=== PATIENT | male | born 1995 | race Two or more races ===

== ENCOUNTER 2024-11-05 14:57 | Outpatient (RCR) | payer MEDICAID, SELFPAY ==
[2024-11-04 12:17] LABS: Basophils % (Auto) 0 % (0-2.5); Eosinophils # (Auto) 0.1 Thou/mm3 (0.0-0.5); Eosinophils % (Auto) 2 % (0-10); Hemoglobin 14.4 g/dL (13.5-16.0); Immature Granulocytes % (Auto) 0 % (0-0); Immature Granulocytes Auto 0.01 Thou/mm3 (0.00-0.00); Lymphocytes # (Auto) 1.8 Thou/mm3 (1.0-4.8); Lymphocytes % (Auto) 26 % (10-50); Mean Corpuscular HGB Conc 34.3 g/dl (31.0-37.0); Mean Corpuscular Hemoglobin 31.6 pg (25.0-35.0); Mean Corpuscular Volume 92 fL (80-100); Monocytes # (Auto) 0.7 Thou/mm3 (0.0-0.8); Monocytes % (Auto) 10 % (0-12); Neutrophils # (Auto) 4.4 Thou/mm3 (1.8-7.7); Neutrophils % (Auto) 62 % (37-80); Nucleated Red Blood Cell % 0 /100 WBC (0); Platelet Count 227 Thou/mm3 (140-440); Red Blood Count 4.55 Miln/mm3 (4.50-5.90); White Blood Count 7.1 Thou/mm3 (3.8-10.6)
[2024-11-04 12:51] LABS: Alanine Aminotransferase 42 U/L (10-49); Anion Gap 8 (7-16); Aspartate Amino Transferase 127 U/L (0-34); BUN/Creatinine Ratio 19 Ratio (12-20); Bilirubin,Total 0.5 mg/dL (0.3-1.2); Blood Urea Nitrogen 15 mg/dL (9-23); Calcium 9.6 mg/dL (8.3-10.6); Calcium (Corrected) 9.6 mg/dL (8.5-10.1); Carbon Dioxide 29.2 mMol/L (20.0-31.0); Chloride 103 mMol/L (98-107); Creatinine (Component) 0.8 mg/dL (0.6-1.3); Globulin 2.4 gm/dL (2.3-3.5); Glucose 84 mg/dL (74-106); LDH (Lactate Dehydrogenase) 325 U/L (120-246); Osmolality,Calculated 279 (275-295); Potassium 4.2 mMol/L (3.4-5.1); Sodium 140 mMol/L (136-145); Total Protein 7.4 gm/dL (5.7-8.2); eGFR > 60 See Note
[2024-11-04 12:52] LABS: Albumin/Globulin Ratio 2.1 (1.2-2.2); Alkaline Phosphatase 77 U/L (46-116)
--- NOTE | 2024-11-08 22:52 | CTCFLWUP_ITS ---
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 Smokes marijuana at least three times a day since 2014. S/p 6 cycles of dose escalated BEACOPP (11/01/2020?05/24/2021) S/p Pembrolizumab (04/17/2022?11/27/2023) DATE OF DIAGNOSIS: 04/21/2015 STAGE/TNM: Nodular sclerosing classic Hodgkin lymphoma TREATMENT HISTORY: Care?Plan Start?Date Cycle Day Intent BEACOPP?escalated?dose?with?neulasta 11/21/2020 1 21 Curative?(primary) VENOfer?200mg?IV?wkly 12/08/2020 1 70 Palliative KEYTRUDA?400?q?6?wks 04/17/2022 1 42 Palliative HISTORY OF PRESENT ILLNESS: Chris Kapadia is a 29-year-old ENG speaking male with following oncology history. 04/21/2015: Mr. Kapadia had excision biopsy of the left neck mass? 10/05/2015?02/22/2016: Mr. Kapadia was treated with 3 cycles of ABVD. 11/03/2019: CT scan of the abdomen and pelvis with IV contrast?hepatomegaly measuring 20 cm, splenomegaly measuring 14 cm. Large mass replacing much of the spleen, at least 8.3 x 7.9 cm in dimension, multiple small or splenic lesions was noted. Large necrotic sal hepatis pericaval periaortic lymph nodes surrounding the aorta and inferior cava were also noted. Adenopathy extends to the common iliac region, external iliac lymph nodes. 11/03/2019: CT scan of the chest with contrast showed a 14 mm noncalcified pulmonary nodule in the left upper lobe with indistinct margins. No mediastinal adenopathy was noted. 11/20/2019: PET CT scan? 03/15/2020: Bone marrow biopsy and aspiration? 08/30/2020: PET CT scan? 09/21/2020: Echocardiogram? 10/10/2020: CT scan of the neck, chest, abdomen and pelvis with IV contrast? 11/02/2020: Pulmonary function test? 11/03/2020: patient had excision of soft facial mass from the left neck. 11/15/2020: Patient went to the ER because of abdominal pain as well as left leg swelling. He had a left lower extremity venous Doppler ultrasound? 11/01/2020? 05/24/2021: Patient received 6 cycles dose escalated BEACOPP with Neulasta. 06/30/2021: PET CT scan? 11/13/2021: [facility] consultation? 12/23/2021: PET/CT scan? 01/17/2022: Bone marrow biopsy and aspiration? 02/21/2022: [facility] decided not to pursue bone marrow transplantation 04/14/2022: PET/CT scan? 04/17/2022: Mr. Kapadia is started on pembrolizumab. 05/23/2023: PET/CT scan? 11/27/2023: Mr. Kapadia had last dose of pembrolizumab. 11/28/2023: PET/CT scan? 01/15/2024 - 02/03/2024: Mr. Kapadia had autologous bone marrow transplantation at [facility]. 02/26/2024: Notes from [facility] 06/23/2024: PET/CT scan? OTHER MEDICAL HISTORY/CONDITIONS: FAMILY HISTORY: ?Clone Family Hx? SOCIAL HISTORY: MEDICATIONS: 1. acyclovir - 400 mg 1 tab Twice a Day 2. Bactrim DS - 800-160 mg 1 tab As directed 3. Biotene Dry Mouth Oral Rinse - 15 mL Four times a day 4. Hydrocortisone (Topical) - 1 % 2 Application As directed 5. magnesium hydroxide - 400 mg/5 mL 30 mL Daily 6. senna - 8.6 mg 1 tab Daily?Palabra Meds? Medications Last Reconciled by Sepideh Blanchard MA on 11/05/2024 ALLERGIES: No Known Drug Allergies REVIEW OF SYSTEMS: A complete 14-point review of systems was performed and is negative except as noted in interval history. PHYSICAL EXAMINATION: VITAL SIGNS: Temperature?99.4, B/P?109/78, Oxygen?Saturation?96% Weight?133?lbs (Change?since?11/04/24:?-5.8?lbs) PAIN: 4 - Moderate pain ECOG Performance Status: 0 - Asymptomatic and fully active GENERAL APPEARANCE: Appears well, in no apparent distress, appropriately interactive. HEENT: Normocephalic, no temporal wasting, normal conjunctiva, no scleral icterus, normal hearing, lips without lesions, neck normal range of motion. CARDIOVASCULAR: Not assessed. PULMONARY: Normal respiratory effort, no respiratory distress or use of accessory muscles, speaking in full sentences, no tachypnea. EXTREMITIES: No pedal edema or cyanosis. SKIN: Normal skin appearance. NEUROLOGIC: Alert and oriented x4. PSHYCHIATRIC: Appropriate affect, mood normal, behavior normal, intact thought and speech. LABORATORY DATA: I have personally reviewed and interpreted each of the patient?s relevant lab tests, abnormal findings are below: Date 11/04/24 ??WHITE?BLOOD?COUNT?(Thou/mm3) 7.1 ??RED?BLOOD?COUNT?(Miln/mm3) 4.55 ??HEMOGLOBIN?(gm/dl) 14.4 ??HEMATOCRIT?(%) 42.0 ??PLATELET?COUNT?(Thou/mm3) 227 ??NEUTROPHILS?%,?AUTO?(%) 62 ??LYMPH?%,?AUTO?(%) 26 ??NEUTROPHILS,?AUTO?(Thou/mm3) 4.4 ASSESSMENT/PLAN: 1. Repeat PET CT scan done on 06/23/2024 showed interval hypermetabolic 7 mm and 3 mm left axillary lymph nodes as documented above.. 2. s/p autologous bone marrow transplantation at [facility] (01/15/2024 - 02/03/2024). 3. PET scan done 11/28/2023 showed no interval recurrent tumor. 4. Mr. Kapadia received last dose of pembrolizumab on 11/27/2023. 5. PET CT scan done on 05/23/2023 showed significant improvement as documented above. 6. Pembrolizumab was started on 04/17/2022. 7. Bone marrow transplantation was canceled by [facility] due to the reasons documented above. 8. Mr. Kapadia denies any complaints today. 9. PET/CT scan done on 12/23/2021 showed progression of the disease as described above. 10. Mr. Kapadia completed 6 cycles of dose escalated BEACOPP on 05/24/2021. 11. Most likely stage IVb Hodgkin's lymphoma. 12. Patient was treated with 3 cycles of ABVD chemotherapy in 2016 as described above. Patient have PET CT scan scheduled. Will follow-up on the PET scan CBC CMP LDH uric acid RETURN TO CLINIC: Telephone appointment after the PET scan to discuss results BILLING AND COMPLIANCE: I reviewed external records from providers outside my specialty as summarized above. I spent a total of 50 minutes on this patient?s care on the day of their visit excluding time spent related to any billed procedures. This time includes time spent with the patient as well as time spent documenting in the medical record, reviewing patients records and tests, obtaining history, placing orders, communicating with other healthcare professionals, counseling the patient, family or caregiver, and/or care coordination for the diagnoses above. Electronically Signed by: Evans Dinero MD T: 10:50 PM CC: Roe?Imelda? PCP: No Primary/family, Physician Referring: Roe Segura This document was completed utilizing speech recognition software. Grammatical errors, random word insertions, pronoun errors, and incomplete sentences are an occasional consequence of this system due to software limitations, ambient noise, and hardware issues. Any formal questions or concerns about the content, text or information contained within the body of this dictation should be directly addressed to the provider for clarification.
--- NOTE | 2024-11-29 23:55 | CTCFLWUP_ITS ---
Patient: CHRIS KAPADIA : 1995 Page 15 of 15 FOLLOW UP NOTE DATE OF SERVICE: 11/26/2024 NAME: CHRIS KAPADIA ACCOUNT: [id number] : 1995 AGE: 29 INTERVAL HISTORY: Telephone appointment to discuss PET scan. 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 Smokes marijuana at least three times a day since 2014. S/p 6 cycles of dose escalated BEACOPP (11/01/2020?05/24/2021) S/p Pembrolizumab (04/17/2022?11/27/2023) DATE OF DIAGNOSIS: 04/21/2015 STAGE/TNM: Nodular sclerosing classic Hodgkin lymphoma TREATMENT HISTORY: Care?Plan Start?Date Cycle Day Intent BEACOPP?escalated?dose?with?neulasta 11/21/2020 1 21 Curative?(primary) VENOfer?200mg?IV?wkly 12/08/2020 1 70 Palliative KEYTRUDA?400?q?6?wks 04/17/2022 1 42 Palliative HISTORY OF PRESENT ILLNESS: Chris Kapadia is a 29-year-old ENG speaking male with following oncology history. 04/21/2015: Mr. Kapadia had excision biopsy of the left neck mass? 10/05/2015?02/22/2016: Mr. Kapadia was treated with 3 cycles of ABVD. 11/03/2019: CT scan of the abdomen and pelvis with IV contrast?hepatomegaly measuring 20 cm, splenomegaly measuring 14 cm. Large mass replacing much of the spleen, at least 8.3 x 7.9 cm in dimension, multiple small or splenic lesions was noted. Large necrotic sal hepatis pericaval periaortic lymph nodes surrounding the aorta and inferior cava were also noted. Adenopathy extends to the common iliac region, external iliac lymph nodes. 11/03/2019: CT scan of the chest with contrast showed a 14 mm noncalcified pulmonary nodule in the left upper lobe with indistinct margins. No mediastinal adenopathy was noted. 11/20/2019: PET CT scan? 03/15/2020: Bone marrow biopsy and aspiration? 08/30/2020: PET CT scan? 09/21/2020: Echocardiogram? 10/10/2020: CT scan of the neck, chest, abdomen and pelvis with IV contrast? 11/02/2020: Pulmonary function test? 11/03/2020: patient had excision of soft facial mass from the left neck. 11/15/2020: Patient went to the ER because of abdominal pain as well as left leg swelling. He had a left lower extremity venous Doppler ultrasound? 11/01/2020? 05/24/2021: Patient received 6 cycles dose escalated BEACOPP with Neulasta. 06/30/2021: PET CT scan? 11/13/2021: [facility] consultation? 12/23/2021: PET/CT scan? 01/17/2022: Bone marrow biopsy and aspiration? 02/21/2022: [facility] decided not to pursue bone marrow transplantation 04/14/2022: PET/CT scan? 04/17/2022: Mr. Kapadia is started on pembrolizumab. 05/23/2023: PET/CT scan? 11/27/2023: Mr. Kapadia had last dose of pembrolizumab. 11/28/2023: PET/CT scan? 01/15/2024 - 02/03/2024: Mr. Kapadia had autologous bone marrow transplantation at [facility]. 02/26/2024: Notes from [facility] 06/23/2024: PET/CT scan? OTHER MEDICAL HISTORY/CONDITIONS: FAMILY HISTORY: SOCIAL HISTORY: MEDICATIONS: 1. acyclovir - 400 mg 1 tab Twice a Day 2. Bactrim DS - 800-160 mg 1 tab As directed 3. Biotene Dry Mouth Oral Rinse - 15 mL Four times a day 4. Hydrocortisone (Topical) - 1 % 2 Application As directed 5. magnesium hydroxide - 400 mg/5 mL 30 mL Daily 6. senna - 8.6 mg 1 tab Daily Medications Last Reconciled by Sepideh Blanchard MA on 11/05/2024 ALLERGIES: No Known Drug Allergies REVIEW OF SYSTEMS: A complete 14-point review of systems was performed and is negative except as noted in interval history. LABORATORY DATA: I have personally reviewed and interpreted each of the patient?s relevant lab tests, abnormal findings are below: Date 11/04/24 ??WHITE?BLOOD?COUNT?(Thou/mm3) 7.1 ??RED?BLOOD?COUNT?(Miln/mm3) 4.55 ??HEMOGLOBIN?(gm/dl) 14.4 ??HEMATOCRIT?(%) 42.0 ??PLATELET?COUNT?(Thou/mm3) 227 ??NEUTROPHILS?%,?AUTO?(%) 62 ??LYMPH?%,?AUTO?(%) 26 ??NEUTROPHILS,?AUTO?(Thou/mm3) 4.4 ASSESSMENT/PLAN: 1. Repeat PET CT scan done on 06/23/2024 showed interval hypermetabolic 7 mm and 3 mm left axillary lymph nodes as documented above.. 2. s/p autologous bone marrow transplantation at [facility] (01/15/2024 - 02/03/2024). 3. PET scan done 11/28/2023 showed no interval recurrent tumor. 4. Mr. Kapadia received last dose of pembrolizumab on 11/27/2023. 5. PET CT scan done on 05/23/2023 showed significant improvement as documented above. 6. Pembrolizumab was started on 04/17/2022. 7. Bone marrow transplantation was canceled by [facility] due to the reasons documented above. 8. Mr. Kapadia denies any complaints today. 9. PET/CT scan done on 12/23/2021 showed progression of the disease as described above. 10. Mr. Kapadia completed 6 cycles of dose escalated BEACOPP on 05/24/2021. 11. Most likely stage IVb Hodgkin's lymphoma. 12. Patient was treated with 3 cycles of ABVD chemotherapy in 2016 as described above. Patient have PET CT scan on 11/19/2024 and is negative CBC CMP LDH uric acid CBC CMP LDH uric acid RETURN TO CLINIC: I will see him back in the clinic in 6 month. BILLING AND COMPLIANCE: I reviewed external records from providers outside my specialty as summarized above. I spent a total of 50 minutes on this patient?s care on the day of their visit excluding time spent related to any billed procedures. This time includes time spent with the patient as well as time spent documenting in the medical record, reviewing patients records and tests, obtaining history, placing orders, communicating with other healthcare professionals, counseling the patient, family or caregiver, and/or care coordination for the diagnoses above. Electronically Signed by: Evans Dinero MD T: 11:52 PM CC: Roe?Imelda? PCP: No Primary/family, Physician Referring: Roe Segura This document was completed utilizing speech recognition software. Grammatical errors, random word insertions, pronoun errors, and incomplete sentences are an occasional consequence of this system due to software limitations, ambient noise, and hardware issues. Any formal questions or concerns about the content, text or information contained within the body of this dictation should be directly addressed to the provider for clarification.
== END 2024-11-27 23:59 | disposition home or self-care (01) ==
LOC: SCTC 14:57
PROVIDERS: Referring Provider Radiology Therapeutic Radiology; Visit Provider Internal Medicine Hematology & Oncology
DX: Z08 Encounter for follow-up examination after completed treatment for malignant neoplasm (principal); Z85.71 Personal history of Hodgkin lymphoma; Z94.81 Bone marrow transplant status; Z92.21 Personal history of antineoplastic chemotherapy
CPT/HCPCS: 36591; 80053; 83615; 84550; 85025; 99212; A4216; J1642; G0463

== ENCOUNTER → 2024-11-19 | Outpatient (CLI) | payer MEDICAID, SELFPAY ==
--- NOTE | 2024-11-19 14:00 | XR_ITS ---
EXAMINATION: PET/CT FUSION SKULL TO THIGH EXAM DATE AND TIME: November 19, 2024 1438 hours Comparison 06/23/2024 INDICATIONS: Diagnosis lymphoma restaging post treatment CTDI:vol (mGy) 3.93 DLP: (mGycm) 1 7.71 PROCEDURE: 16.09 mCi FDG was administered intravenously To allow for distribution and uptake of radiotracer, the patient was allowed to rest quietly in a shielded room. Imaging was performed on an integrated 16-slice PET/CT scanner, with scanning from the skull base to the mid thigh. Serum blood glucose at the time of the injection was measured 99 mg/dL. CT scanning was performed without oral or intravenous contrast material. FINDINGS: Head and Neck: There is no toni hypermetabolism in the neck. The visualized portions of the brain are normal in appearance on CT. Chest: Stable non hypermetabolic scarring in the right upper lobe Abdomen and Pelvis: There is no toni hypermetabolism in retroperitoneal or pelvic chains. The spleen is normal in size and FDG avidity. Musculoskeletal: Marrow uptake is within normal range. IMPRESSION: No interval neck chest abdomen or pelvic lymphadenopathy
== END | disposition home or self-care (01) ==
LOC: CDIM 13:08
PROVIDERS: PCP Family Medicine; Referring Provider Internal Medicine Hematology & Oncology; Visit Provider Internal Medicine Hematology & Oncology
DX: C81.71 Other Hodgkin lymphoma, lymph nodes of head, face, and neck (principal)
CPT/HCPCS: 78815; A9552

== ENCOUNTER 2024-12-08 16:02 | Outpatient (RCR) | payer MEDICAID, SELFPAY ==
--- NOTE | 2024-12-21 00:18 | CTCFLWUP_ITS ---
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 Smokes marijuana at least three times a day since 2014. S/p 6 cycles of dose escalated BEACOPP (11/01/2020?05/24/2021) S/p Pembrolizumab (04/17/2022?11/27/2023) DATE OF DIAGNOSIS: 04/21/2015 STAGE/TNM: Nodular sclerosing classic Hodgkin lymphoma TREATMENT HISTORY: Care Plan Start Date Cycle Day Intent BEACOPP escalated dose with neulasta 11/21/2020 1 21 Curative (primary) VENOfer 200mg IV wkly 12/08/2020 1 70 Palliative KEYTRUDA 400 q 6 wks 04/17/2022 1 42 Palliative HISTORY OF PRESENT ILLNESS: 29-year-old male for follow-up on PET CT scan OTHER MEDICAL HISTORY/CONDITIONS: FAMILY HISTORY: SOCIAL HISTORY: MEDICATIONS: 1. acyclovir - 400 mg 1 tab Twice a Day 2. Biotene Dry Mouth Oral Rinse - 15 mL Four times a day 3. Hydrocortisone (Topical) - 1 % 2 Application As directed 4. magnesium hydroxide - 400 mg/5 mL 30 mL Daily 5. senna - 8.6 mg 1 tab Daily Medications Last Reconciled by Micheline Valdivia MA on 12/08/2024 ALLERGIES: No Known Drug Allergies REVIEW OF SYSTEMS: A complete 14-point review of systems was performed and is negative except as noted in interval history. PHYSICAL EXAMINATION: The patient appeared well-nourished, alert, and in no apparent distress via video conferencing. LABORATORY DATA: I have personally reviewed and interpreted each of the patient?s relevant lab tests, abnormal findings are below: ASSESSMENT/PLAN: Hodgkin lymphoma stage IV s/p treatment s/p autologous bone marrow transplantation at [facility] (01/15/2024 - 02/03/2024). PET scan done 11/28/2023 showed no interval recurrent tumor. Mr. Kapadia received last dose of pembrolizumab on 11/27/2023. PET CT scan done on 05/23/2023 showed significant improvement as documented above. Pembrolizumab was started on 04/17/2022. Bone marrow transplantation was canceled by [facility] due to the reasons documented above. Mr. Kapadia denies any complaints today. PET/CT scan done on 12/23/2021 showed progression of the disease as described above. Mr. Kapadia completed 6 cycles of dose escalated BEACOPP on 05/24/2021. Patient was treated with 3 cycles of ABVD chemotherapy in 2015 as described above. Patient have PET CT scan scheduled. PET scan on 11/19/2024 is negative ORDERS: Order # Description [id number] Follow Up 6 Month RETURN TO CLINIC: 6 months BILLING AND COMPLIANCE: I reviewed external records from providers outside my specialty as summarized above. I spent a total of 50 minutes on this patient?s care on the day of their visit excluding time spent related to any billed procedures. This time includes time spent with the patient as well as time spent documenting in the medical record, reviewing patients records and tests, obtaining history, placing orders, communicating with other healthcare professionals, counseling the patient, family or caregiver, and/or care coordination for the diagnoses above. I performed this evaluation using real-time Telehealth tools. Prior to initiating, the patient consented to perform this evaluation using Telehealth tools. Electronically Signed by: Evans Dinero MD T: 12:16 AM CC: Toney? PCP: Carlo Spaulding Referring: Evans Dinero This document was completed utilizing speech recognition software. Grammatical errors, random word insertions, pronoun errors, and incomplete sentences are an occasional consequence of this system due to software limitations, ambient noise, and hardware issues. Any formal questions or concerns about the content, text or information contained within the body of this dictation should be directly addressed to the provider for clarification.
== END 2024-12-28 23:59 | disposition home or self-care (01) ==
LOC: SCTC 16:02
PROVIDERS: PCP Family Medicine; Referring Provider Internal Medicine Hematology & Oncology; Visit Provider Internal Medicine Hematology & Oncology
DX: C81.11 Nodular sclerosis Hodgkin lymphoma, lymph nodes of head, face, and neck (principal); Z94.81 Bone marrow transplant status; Z92.21 Personal history of antineoplastic chemotherapy
CPT/HCPCS: 99212; G0463

== ENCOUNTER → 2025-02-23 | Outpatient (CLI) | payer MEDICAID, SELFPAY ==
--- NOTE | 2025-02-23 16:08 | XR_ITS ---
Examination: PA lateral chest 2 views TECHNIQUE: Upright PA and lateral chest 2 views Date and time: February 23, 2025, 1613 hours Comparison November 29, 2023 INDICATIONS: Status post Port-A-Cath removal FINDINGS: Port-A-Cath reservoir is no longer identified The Port-A-Cath subclavian line, however, does remain, tip in the superior vena cava Normal heart size Moderate hyperexpansion IMPRESSION: Port-A-Cath reservoir is no longer identified The Port-A-Cath subclavian line, however, does remain, tip in the superior vena cava
== END | disposition home or self-care (01) ==
PROVIDERS: Referring Provider Surgery; Visit Provider Surgery
DX: S20.9 Superficial injury of unspecified parts of thorax (principal); X58.XXXA Exposure to other specified factors, initial encounter; Z98.890 Other specified postprocedural states
CPT/HCPCS: 71046

== ENCOUNTER 2025-03-29 16:31 | Emergency (ER) | payer MEDICAID, SELFPAY ==
[2025-03-29 17:41] VITALS: BP 143/90; PULSE 64; RESP 18; TEMP 36.7; O2SAT 96; BMI 23.3
--- NOTE | 2025-03-29 18:30 | XR_ITS ---
Examination: PA lateral chest 2 views TECHNIQUE: Upright PA and lateral chest 2 views Date and time: March 29, 2025 1852 hours INDICATIONS: Port-A-Cath removal 3 weeks ago, Port-A-Cath remnant on chest x-ray February 23, 2025 FINDINGS: Stable Port-A-Cath line, tip SVC Normal heart size Lungs are clear Old fracture left sixth rib posteriorly IMPRESSION: Stable position Port-A-Cath line
--- NOTE | 2025-03-29 18:31 | PD.EDRME ---
Rapid Medical Screening Exam RME Arrival date/time: 03/29/25 16:31 Chief Complaint: Wound Recheck / Suture Removal Time Seen by Provider: 03/29/25 18:19 Vital signs: Vital Signs Temperature 98.0 F 03/29/25 17:41 Pulse Rate 64 03/29/25 17:41 Respiratory Rate 18 03/29/25 17:41 Blood Pressure 143/90 H 03/29/25 17:41 Pulse Oximetry (%) 96 03/29/25 17:41 Oxygen Delivery Method Room Air 03/29/25 17:41 RME Narrative: Patient with hx of hodgkins lymphoma, port removed 03/10. Patient states wire unable to be removed, it's stuck to vein after 10 years. Sent from oncology for xr. Surgery appt scheduled 04/06.
--- NOTE | 2025-03-29 18:55 | PC.NURSE ---
Pt did not answer when name was called and was not found outside
== END 2025-03-29 19:43 | disposition home or self-care (01) ==
PROVIDERS: Emergency Provider Emergency Medicine
DX: Z45.2 Encounter for adjustment and management of vascular access device (principal)
CPT/HCPCS: 71046; 99283

== ENCOUNTER 2025-05-17 14:43 | Outpatient (RCR) | payer MEDICAID, SELFPAY ==
[2025-05-17 15:46] LABS: Basophils # (Auto) 0.0 Thou/mm3 (0.0-0.2); Basophils % (Auto) 1 % (0-2.5); Eosinophils # (Auto) 0.1 Thou/mm3 (0.0-0.5); Eosinophils % (Auto) 2 % (0-10); Hematocrit 38.4 % (41.0-53.0); Hemoglobin 13.0 g/dL (13.5-16.0); Immature Granulocytes Auto 0.01 Thou/mm3 (0.00-0.00); Lymphocytes # (Auto) 1.1 Thou/mm3 (1.0-4.8); Lymphocytes % (Auto) 23 % (10-50); Mean Corpuscular HGB Conc 33.9 g/dl (31.0-37.0); Mean Corpuscular Hemoglobin 31.8 pg (25.0-35.0); Mean Corpuscular Volume 94 fL (80-100); Monocytes # (Auto) 0.5 Thou/mm3 (0.0-0.8); Monocytes % (Auto) 11 % (0-12); Neutrophils # (Auto) 2.9 Thou/mm3 (1.8-7.7); Neutrophils % (Auto) 63 % (37-80); Nucleated Red Blood Cell # 0.00 Thou/mm3 (0.00-0.00); Nucleated Red Blood Cell % 0 /100 WBC (0); Platelet Count 196 Thou/mm3 (140-440); RDW Standard Deviation 41.3 fL (35.1-43.9); Red Blood Count 4.09 Miln/mm3 (4.50-5.90); White Blood Count 4.7 Thou/mm3 (3.8-10.6)
[2025-05-17 16:12] LABS: Alanine Aminotransferase 8 U/L (10-49); Albumin, Serum 4.6 gm/dL (3.5-5.0); Albumin/Globulin Ratio 2.6 (1.2-2.2); Alkaline Phosphatase 61 U/L (46-116); Anion Gap 7 (7-16); Aspartate Amino Transferase 16 U/L (0-34); BUN/Creatinine Ratio 10 Ratio (12-20); Bilirubin,Total 0.7 mg/dL (0.3-1.2); Blood Urea Nitrogen 8 mg/dL (9-23); Calcium 9.8 mg/dL (8.3-10.6); Calcium (Corrected) 9.8 mg/dL (8.5-10.1); Carbon Dioxide 28.0 mMol/L (20.0-31.0); Chloride 108 mMol/L (98-107); Creatinine (Component) 0.8 mg/dL (0.6-1.3); Globulin 1.8 gm/dL (2.3-3.5); Glucose 66 mg/dL (74-106); LDH (Lactate Dehydrogenase) 159 U/L (120-246); Osmolality,Calculated 281 (275-295); Potassium 3.9 mMol/L (3.4-5.1); Sodium 143 mMol/L (136-145); Total Protein 6.4 gm/dL (5.7-8.2); eGFR > 60 See Note
[2025-05-17 17:10] LABS: Uric Acid 4.6 mg/dL (3.7-9.2)
== END 2025-05-30 23:59 | disposition home or self-care (01) ==
LOC: SCTC 14:43
PROVIDERS: Referring Provider Internal Medicine Hematology & Oncology; Visit Provider Internal Medicine Hematology & Oncology
DX: C81.71 Other Hodgkin lymphoma, lymph nodes of head, face, and neck (principal); Z94.81 Bone marrow transplant status; Z92.21 Personal history of antineoplastic chemotherapy
CPT/HCPCS: 36415; 80053; 83615; 84550; 85025

== ENCOUNTER 2025-08-12 15:15 | Outpatient (RCR) | payer MEDICAID, SELFPAY | END 2025-08-29 23:59 | disposition home or self-care (01) | LOC: SCTC 15:15 | PROVIDERS: PCP Family Medicine; Referring Provider Internal Medicine Hematology & Oncology; Visit Provider Internal Medicine Hematology & Oncology | DX: C81.11 Nodular sclerosis Hodgkin lymphoma, lymph nodes of head, face, and neck (principal); Z94.81 Bone marrow transplant status; Z92.21 Personal history of antineoplastic chemotherapy | CPT/HCPCS: 99212; G0463 ==